=== PATIENT | male | born 1965 | race Caucasian/White ===

== ENCOUNTER 2024-11-30 09:53 | Emergency (ER) | payer MEDICAID ==
[~2024-11-30] VITALS: Ht 175.3 cm; Wt 131.1 kg
--- NOTE | 2024-11-30 10:47 | Physician Documentation ---
History of Present Illness ~ Chief Complaint: Leg Pain Stated Complaint: L LOWER LEG PAIN Time Seen by MD: 10:03 HPI Patient is seen today with complaints of swelling in his left lower extremity in his concerned for repeat DVT. Patient states he has prescribed blunt thinners but does not take them as prescribed. Patient also complains today of some chest pain and heaviness that started just earlier today. Patient denies any significant shortness of breath or abdominal pain or nausea, vomiting, diarrhea. Patient has no other concern or complaint at this time. Medication Reconciliation Allergies: Coded Allergies: No Known Allergies (Unverified , 11/30/24) Review of Systems Constitutional: Denies: chills, fever, weakness Eyes: Denies: pain, blurred vision ENT: Denies: ear pain, nose pain, throat pain, mouth pain Respiratory: Denies: cough, shortness of breath Cardiovascular: Denies: chest pain, palpitations Gastrointestinal: Denies: abdominal pain, nausea, vomiting Genitourinary: Denies: burning, dysuria Male Genitalia: Denies: penile discharge, testicular pain Neurological: Denies: headache, dizziness Musculoskeletal: Denies: pain, swelling Integumentary: Denies: rash, lesions Allergic/Immunologic: Denies: hives, itching Hematologic/Lymphatic: Denies: no symptoms reported Psychiatric: Denies: depression, anxiety Physical Exam Vital Signs: Temperature: 98.3, Heart Rate: 85, Respiratory Rate: 16, BP: 157/92, Pulse Oximetry: 97, Weight: 131.100 Oxygen Flow Rate: 0 Physical Exam General: Awake and Alert, no acute distress. HEENT: Conjunctiva pink, Sclera clear, Mucus Membranes moist. Neck: Supple without masses and tenderness. Resp: Unlabored. Lungs clear to auscultation bilaterally. Heart: Regular Rate and rhythm, normal S1 and S2 without murmur, rub or gallop. Abdomen: Soft and non tender no organomegaly Extremities: No cyanosis,clubbing, patient does have 2+ pitting edema of the left lower extremity as well as the right lower extremity however edema is slightly worse on the left lower extremity. Patient has negative Homans sign bilaterally. Skin: Warm and Dry. Progress Results/Orders Results/Orders Orders - UGO MEDRANO PAC Chest,Single View (11/30/24 10:45) Monitor (11/30/24 10:45) Saline Lock (11/30/24 10:45) Oxygen (11/30/24 10:45) Hs Troponin I W Calculations (11/30/24 13:45) Vl Venous (11/30/24 12:17) Completed Orders - UGO MEDRANO PAC Chest,Single View (11/30/24 10:45) Cbc/Diff (11/30/24 10:45) PBNP (11/30/24 10:45) Electrocardiogram (11/30/24 10:45) CMP (11/30/24 10:45) Hs Troponin I W Calculations (11/30/24 10:45) Hs Troponin I W Calculations (11/30/24 12:45) Vl Venous (11/30/24 12:17) Vital Signs 11/30/24 11/30/24 11/30/24 11/30/24 09:56 10:47 10:47 11:52 Temp 98.3 98.3 98.3 Pulse 85 71 68 Resp 16 18 18 16 B/P (MAP) 157/92 136/92 (107) 139/92 (108) Pulse Ox 97 94 93 O2 Flow Rate 0 0 0 11/30/24 11/30/24 11/30/24 12:14 12:30 13:30 Pulse 64 63 Resp 18 15 B/P (MAP) 145/90 (108) 110/65 (80) Pulse Ox 98 99 99 O2 Delivery Room Air* O2 Flow Rate 0 FiO2 21 Laboratory Tests Test 11/30/24 10:56 11/30/24 13:00 White Blood Count 7.9 Red Blood Count 5.19 Hemoglobin 15.2 Hematocrit 44.6 Mean Corpuscular Volume 86.1 Mean Corpuscular Hemoglobin 29.3 Mean Corpuscular Hemoglobin Concent 34.0 Red Cell Distribution Width 14.1 Platelet Count 207 Mean Platelet Volume 7.8 Neutrophils (%) (Auto) 53.1 Lymphocytes (%) (Auto) 29.9 Monocytes (%) (Auto) 9.4 Eosinophils (%) (Auto) 6.5 H Basophils (%) (Auto) 1.1 H Neutrophils # (Auto) 4.2 Lymphocytes # (Auto) 2.3 Monocytes # (Auto) 0.7 Eosinophils # (Auto) 0.5 Basophils # (Auto) 0.1 CBC Comment Sodium Level 139 Potassium Level 3.7 Chloride Level 103 Carbon Dioxide Level 27.9 Anion Gap 8 Blood Urea Nitrogen 13 Creatinine 0.98 Estimated GFR/1.73 m2 79 BUN/Creatinine Ratio 13.3 Glucose Level 116 H Calcium Level 8.7 Total Bilirubin 0.7 Aspartate Amino Transf (AST/SGOT) 11 Alanine Aminotransferase (ALT/SGPT) 17 Alkaline Phosphatase 122 H Troponin I High Sensitivity < 4 L 4 Troponin I High Sens Percent Delta Troponin I Hi Sens Absolute Change Pro-B-Type Natriuretic Peptide < 30 Total Protein 7.7 Albumin 3.9 Globulin 3.8 Albumin/Globulin Ratio 1.0 L Chemistry Comments EKG/XRAY/CT/US/VASC/MRI EKG : Additional Comment EKG interpreted by myself today shows regular rate at 68 beats per minute, normal sinus rhythm, no axis deviation, no sign of ST segment elevation or ischemia, there was one area in V5 with nonspecific T-wave abnormality Chest X-Ray : Additional Comments Chest x-ray interpreted by myself today shows no large effusion, no large infiltrate, normal mediastinum. DIAGNOSTIC RADIOLOGY Patient: CARLOS VAIL Medical Record: [id number] [facility] : 1965, Age: 59 Sex: Male Location: ER Patient Status: [facility] ER Service Date/Time: 11/30/241044 Ordering Physician: UGO MEDRANO PAC Exam: CHEST,SINGLE VIEW DI CHEST,SINGLE VIEW, HISTORY: CP COMPARISON: None None TECHNICAL DATA: 1 view of the chest was obtained. FINDINGS: Lines and tubes: None Cardiomediastinal silhouette: normal Pulmonary vasculature: normal Lung expansion: normal Lung airspace: normal Lung interstitium: normal Pleura: normal Pneumothorax: no Bones: Unremarkable Other: no IMPRESSION: No acute intrathoracic abnormality. Electronically Signed by:JEN SAGASTUME MD Date & Time: 11/30/24 1153 Dictated by: JEN SAGASTUME MD Dictation date and time: 11/30/24 2233 Primary Care Provider: NO PRIMARY CARE PROVIDER cc: UGO MEDRANO PAC ~ Ultrasound : Impression Ultrasound interpretation per radiologist shows no new DVT noted in left lower e xtremity. Residual chronic thrombus noted in left popliteal vein. Left popliteal vein is partially occlusive. Flow was noted through area of thrombus. Contralateral CFV shows normal spontaneous respirophasic flow and good augmentation. Medical Decision Making Findings Patient is seen today with complaints of swelling in his left lower extremity in his concerned for repeat DVT. Patient states he has prescribed blunt thinners but does not take them as prescribed. Patient also complains today of some chest pain and heaviness that started just earlier today. Patient denies any significant shortness of breath or abdominal pain or nausea, vomiting, diarrhea. Patient has no other concern or complaint at this time. Patient's blood work, chest x-ray, EKG, as well as vascular venous Doppler ultrasound of the left lower extremity all returned unremarkable. Patient will continue medications as prescribed and I strongly advised patient be compliant when taking his blood thinner medications. Patient voiced understanding. Patient will return to ED with any worsening, concerning or changing symptoms. Shared decision-making utilized today with the patient. Departure Disposition: HOME / SELF CARE / HOMELESS Impression: Primary Impression: Chest pain, non-cardiac Additional Impression: Edema, lower extremity Condition: Stable Discharge Instructions: Deep Vein Thrombosis Additional Instructions: Patient's blood work, chest x-ray, EKG, as well as vascular venous Doppler ultrasound of the left lower extremity all returned unremarkable. Ultrasound of the left lower extremity did show chronic residual thrombus but does not show any new thrombus. Patient will continue medications as prescribed and I strongly advised patient be compliant when taking his blood thinner medications. Patient voiced understanding. Patient will return to ED with any worsening, concerning or changing symptoms. Shared decision-making utilized today with the patient. Referrals: NO PRIMARY CARE PROVIDER (PCP) Signature Scribe Signature: No scribe Attestation: No scribe UGO MEDRANO PAC November 30, 2024 10:47
--- NOTE | 2024-11-30 10:49 | ELECTROCARDIOGRAPH REPORT ---
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
[2024-11-30 11:06] LABS: BASOPHILS # (AUTO) 0.1 X10'3 (0-0.2); BASOPHILS % (AUTO) 1.1 % (0-1); EOSINOPHILS # (AUTO) 0.5 X10'3 (0-0.9); EOSINOPHILS % (AUTO) 6.5 % (0-6); HEMATOCRIT 44.6 % (42.0-52.0); HEMOGLOBIN 15.2 g/dl (14.0-17.9); LYMPHOCYTES # (AUTO) 2.3 X10'3 (1.1-4.8); LYMPHOCYTES % (AUTO) 29.9 % (21-51); MEAN CORPUSCULAR HEMOGLOBIN 29.3 PG (27.0-31.0); MEAN CORPUSCULAR VOLUME 86.1 FL (78-98); MEAN PLATELET VOLUME 7.8 FL (7.4-10.4); MONOCYTES # (AUTO) 0.7 X10'3 (0-0.9); MONOCYTES % (AUTO) 9.4 % (2-12); NEUTROPHILS # (AUTO) 4.2 X10'3 (1.8-7.7); NEUTROPHILS % (AUTO) 53.1 % (42-75); PLATELET COUNT 207 X10'3 (140-440); RED BLOOD COUNT 5.19 X10'6 (4.70-6.10); RED CELL DISTRIBUTION WIDTH 14.1 % (11.5-14.5); WHITE BLOOD COUNT 7.9 X10'3 (4.5-11.0)
[2024-11-30 11:23] LABS: ALANINE AMINOTRANSFERASE 17 U/L (12-78); ALBUMIN 3.9 G/DL (3.4-5.0); ALKALINE PHOSPHATASE 122 IU/L (46-116); ANION GAP 8 (8-16); ASPARTATE AMINO TRANSFERASE 11 U/L (10-37); BILIRUBIN,TOTAL 0.7 MG/DL (0.1-1.0); BLOOD UREA NITROGEN 13 MG/DL (7-18); BUN/CREATININE RATIO 13.3 (10.0-20.0); CALCIUM 8.7 MG/DL (8.5-10.1); CHLORIDE 103 MMOL/L (99-107); CREATININE 0.98 MG/DL (0.60-1.10); GLUCOSE 116 MG/DL (70-104); POTASSIUM 3.7 MMOL/L (3.5-5.1); SODIUM 139 MMOL/L (135-145); TOTAL CARBON DIOXIDE 27.9 MMOL/L (24-32); TOTAL PROTEIN 7.7 G/DL (6.4-8.2); eCRCL 82 ML/MIN; eGFR 79 ML/MIN
[2024-11-30 11:27] LABS: PRO BRAIN NATRIURETIC PEPTIDE < 30 PG/ML (0-125)
[2024-11-30 11:52] VITALS: TEMP 98.3
--- NOTE | 2024-11-30 11:56 | RADIOLOGY REPORT ---
DI CHEST,SINGLE VIEW, HISTORY: CP COMPARISON: None None TECHNICAL DATA: 1 view of the chest was obtained. FINDINGS: Lines and tubes: None Cardiomediastinal silhouette: normal Pulmonary vasculature: normal Lung expansion: normal Lung airspace: normal Lung interstitium: normal Pleura: normal Pneumothorax: no Bones: Unremarkable Other: no IMPRESSION: No acute intrathoracic abnormality.
[2024-11-30 13:30] VITALS: BP 110/65; PULSE 63; RESP 15; O2SAT 99
--- NOTE | 2024-12-01 06:27 | VASCULAR REPORT ---
EXAM: US Duplex Left Lower Extremity Veins CLINICAL INDICATION: Reason TECHNIQUE: Real-time duplex ultrasound scan of the left lower extremity veins integrating B-mode two -dimensional vascular structure, Doppler spectral analysis, color flow Doppler imaging and compressio n. COMPARISON: None FINDINGS: DEEP VEINS: Chronic residual thrombus in the left popliteal vein. SUPERFICIAL VEINS: Unremarkable. No thrombus in the visualized great saphenous vein. SOFT TISSUES: No acute findings. No popliteal cyst. OTHER FINDINGS: . IMPRESSION: Chronic residual thrombus in the left popliteal vein.
== END 2024-11-30 15:06 | disposition home or self-care (01) ==
LOC: ER 09:54
DX: R07.9 Chest pain, unspecified (principal); R60.0 Localized edema; I16.1 Hypertensive emergency
CPT/HCPCS: 36415; 71045; 80053; 83880; 84484; 85025; 93005; 93971; 99285

== ENCOUNTER 2025-05-10 14:12 | Emergency (ER) | payer MEDICAID ==
[~2025-05-10] VITALS: Ht 172.7 cm; Wt 122.2 kg
[2025-05-10 15:08] VITALS: BP 147/92; PULSE 70; RESP 18; O2SAT 96
--- NOTE | 2025-05-10 15:23 | Physician Documentation ---
History of Present Illness ~ Chief Complaint: Leg Pain Stated Complaint: L LEG PAIN Time Seen by MD: 14:50 Primary Medical Doctor: Tawanda ZIMMERMAN This is a 59-year-old male with a history of DVTs who presents with two weeks of left calf pain extending into his left posterior thigh, patient reports no chest pain or difficulty breathing. Patient reports that he is on Eliquis for chronic DVTs though had an episode where he did not take his Eliquis for two weeks though is now taking it again. Tetanus witin 5 years: Yes Medication Reconciliation Allergies: Coded Allergies: No Known Allergies (Unverified , 05/10/25) Past Medical History Past Medical History: Deep Vein Thrombosis Review of Systems ROS As stated above in the HPI, otherwise all systems are reviewed and negative. Physical Exam Vital Signs: Temperature: 97.2, Source: Oral, Heart Rate: 70, Respiratory Rate: 18, BP: 147/92, Pulse Oximetry: 96, Weight: 122.200 Oxygen Flow Rate: 0 Physical Exam VITALS: Reviewed and as above. GENERAL: Alert, nontoxic appearing, no apparent distress. RESPIRATORY: No increased work of breathing, no respiratory distress, speaking in full clear sentences, clear lung sounds in all felipe CV: Regular rate and rhythm no murmur, pedal pulses intact bilaterally, brisk capillary refill to the feet MUSCULOSKELETAL: Left posterior calf tender to palpation. No swelling of left leg as compared to right leg. SKIN: Bilateral calves and feet No ecchymosis, no erythema NEURO: Sensation to both feet intact Progress Results/Orders Results/Orders Orders - PUMA YANEZ Venous (05/10/25 15:24) Completed Orders - PUMA YANEZ Venous (05/10/25 15:24) Vital Signs 05/10/25 05/10/25 05/10/25 14:34 15:08 16:37 Temp 97.2 97.2 97.2 Pulse 70 70 Resp 18 18 B/P (MAP) 147/92 147/92 (110) Pulse Ox 96 96 O2 Flow Rate 0 0 EKG/XRAY/CT/US/VASC/MRI Vascular : Impression Exam Name: VENOUS Technologist: [facility] Vascular Department [address] [address] [email or web address] [email or web address] Name : CARLOS VAIL Date : 05/10/2025 [facility] Accession# : [id number] Birthdate : 1965 Sex : M 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 : PUMA YANEZ, Preliminary Report The above named patient was referred for a NON-INVASIVE LOWER EXTREMITY VENOUS EXAMINATION. The evaluation includes grayscale imaging, color flow Doppler and spectral analysis of the major deep and superficial lower extremity veins. Left Lower Extremity Venous Study for DVT Patient ER InbRSaion's Left leg pain, history left leg DVT Past History DVT : Vein Imaging (Left) CFV (L): Compressible, Spontaneous, Respirophasic, Augmentation Reflux: ms SFJ (L): Compressible, Spontaneous, Respirophasic, Augmentation Reflux: ms FEM (L): Spontaneous, Respirophasic, Augmentation, Partially Compressible, Chronic Thrombus Reflux: ms POP (L): Spontaneous, Respirophasic, Augmentation, Partially Compressible, Fruit Packer jyothi Thrombus Reflux: ms DFV (L): Compressible, Spontaneous, Respirophasic, Augmentation Reflux: ms PTV (L): Compressible, Spontaneous, Respirophasic, Augmentation Reflux: ms GSV (L): Compressible, Spontaneous, Respirophasic, Augmentation Reflux: ms Peroneals (L): Compressible, Spontaneous, Respirophasic, Augmentation Reflux: ms Impression: Chronic residual non-occlusive thrombus visualized in left Femoral Vein, Left Pop Vein. No acute DVT visualized at this time. Dictated by:LUKE VERNON MD Dictation date and time:05/10/251638 Electronically Signed by: LUKE VERNON MD Date and Time: 05/10/251638 Transcribed: HERNAN Medical Decision Making Additional information obtaine: N/A Findings This 59-year-old male history of chronic DVT presented with posterior calf tenderness, reassuringly he did not report chest pain or shortness of breath, physical exam did not demonstrate significant swelling or discoloration of the calf, vascular ultrasound did not demonstrate acute DVT though did demonstrate evidence of chronic DVT. As patient is already on Eliquis therapy for chronic DVT and has no new symptoms and no acute DVT he will be discharged to follow up with the primary care. Patient is hemodynamically stable and well-appearing appropriate for outpatient follow up. Patient provided home care instructions, follow up instructions, and return to care precautions. General Diff Dx:Considerations: Include: Abrasion, Contusion, Fracture, Hematoma, Neurovascular injury, Sprain, Other (Acute DVT, cellulitis, strain, sprain) Knee Diff Dx:Considerations: Include: Arthritis, DJD, Meniscus injury, Septic Ankle Diff Dx:Considerations: Unlikely: Abrasion, Arthritis, Contusion, DJD, Fracture-metatarsal, Fracture-fibula, Fracture-tarsal, Fracture-tibia, Gout, Hematoma, Laceration, Malunion, Neurovascular injury, Nonunion, Open fracture, Osteomyelitis, Rheumatoid arthritis, Sprain, Septic, Ulcer, Other Foot Diff Dx:Considerations: Unlikely: Abrasion, Arthritis, Cellulitis, Contusion, Dislocation, DJD, Fracture-metatarsal, Fracture-phalynx, Fracture- tarsal, Gout, Hematoma, Ingrown toenail, Laceration, Malunion, Neurovascular injury, Open fracture, Paronychia, Puncture, Rheumatoid, Sprain, Septic, Subungual hematoma, Ulcer, Other Toe Diff Dx:Considerations: Unlikely: Abrasion, Cellulitis, Contusion, Dislocation, Felon, Fracture, Hematoma, Laceration, Neurovascular injury, Open fracture, Paronychia, Subungual hematoma, Other Departure Time of Disposition: 16:33 Disposition: 01 HOME / SELF CARE / HOMELESS Impression: Primary Impression: Chronic deep vein thrombosis (DVT) Qualified Codes: I82.502 - Chronic embolism and thrombosis of unspecified deep veins of left lower extremity Condition: Improved Discharge Instructions: Deep Vein Thrombosis Additional Instructions: Continue to take your previously prescribed Eliquis. Please follow up with your primary care provider in the next few days. Please return to the emergency department for any new or worsening concerning symptoms. Referrals: NO PRIMARY CARE PROVIDER (PCP) Education Educated: Patient Educated regarding: diagnosis, treatment, prognosis, need for follow up Signature Scribe Signature: No scribe Attestation: The note accurately reflects work and decisions made by me.BHARGAVI Guzmán 05/10/25 19:32 Parts of this note were created using [employer] voice recognition software program. While efforts were made to correct any mistakes made by this voice recognition software program, nonsensical phrases may remain in this note. In addition, there may be errors and syntax, grammar, content and spelling. PUMA YANEZ SEO SPECIALIST May 10, 2025 15:23
[2025-05-10 16:37] VITALS: TEMP 97.2
--- NOTE | 2025-05-10 16:42 | VASCULAR REPORT ---
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 : PUMA YANEZ, Preliminary Report The above named patient was referred for a NON-INVASIVE LOWER EXTREMITY VENOUS EXAMINATION. The evaluation includes grayscale imaging, color flow Doppler and spectral analysis of the major deep and superficial lower extremity veins. Left Lower Extremity Venous Study for DVT Patient ER InbRSaion's Left leg pain, history left leg DVT Past History DVT : Vein Imaging (Left) CFV (L): Compressible, Spontaneous, Respirophasic, Augmentation Reflux: ms SFJ (L): Compressible, Spontaneous, Respirophasic, Augmentation Reflux: ms FEM (L): Spontaneous, Respirophasic, Augmentation, Partially Compressible, Chronic Thrombus Reflux: ms POP (L): Spontaneous, Respirophasic, Augmentation, Partially Compressible, Chronic Thrombus Reflux: ms DFV (L): Compressible, Spontaneous, Respirophasic, Augmentation Reflux: ms PTV (L): Compressible, Spontaneous, Respirophasic, Augmentation Reflux: ms GSV (L): Compressible, Spontaneous, Respirophasic, Augmentation Reflux: ms Peroneals (L): Compressible, Spontaneous, Respirophasic, Augmentation Reflux: ms Impression: Chronic residual non-occlusive thrombus visualized in left Femoral Vein, Left Pop Vein. No acute DVT visualized at this time.
== END 2025-05-10 16:38 | disposition home or self-care (01) ==
LOC: ER 14:13
DX: I82.502 Chronic embolism and thrombosis of unspecified deep veins of left lower extremity (principal); Z79.01 Long term (current) use of anticoagulants
CPT/HCPCS: 93971; 99284